=== PATIENT | female | born 1975 | race Caucasian/White ===

== ENCOUNTER 2020-11-05 15:04 | Inpatient (IN) | payer MEDICAID, OTHER ==
[~2020-11-05] VITALS: Ht 160 cm; Wt 63.5 kg
[2020-11-05 17:32] LABS: BASOPHILS % 0.7 % (0.0-2.0); EOSINOPHILS % 0.6 % (0.0-5.0); HEMATOCRIT. 34.4 % (36.0-48.0); HEMOGLOBIN. 11.5 g/dL (12.0-16.0); LYMPHOCYTES % 18.6 % (20.0-50.0); MEAN CORPUSCULAR HEMOGLOBIN 28.1 pg (28.0-32.0); MEAN CORPUSCULAR VOLUME 84.4 fL (81.0-99.0); MEAN PLATELET VOLUME 7.5 fl (7.4-10.4); MONOCYTES % 7.3 % (2.0-8.0); NEUTROPHILS % 72.8 % (40.0-76.0); PLATELET 328 x1000/uL (130-400); RED BLOOD CELL COUNT 4.08 mill/uL (4.2-5.4); RED CELL DISTRIBUTION WIDTH 15.5 % (11.6-14.6)
[2020-11-05 17:34] LABS: CHLORIDE 110 mEq/L (98-107)
[2020-11-05 17:41] LABS: ETHANOL BLOOD < 10 mg/dL
[2020-11-06] MEDS ORDERED: LORAZEPAM 2MG/ML CPJ IM ONE (21:15)
[2020-11-07] MEDS ORDERED: LORAZEPAM 2MG/ML CPJ IV ONE ×2 (11:30→12:00)
[2020-11-07] MEDS ORDERED: SODIUM CHLORIDE 0.9% 1,000 ML IV ONE (11:30)
[2020-11-07 11:47] LABS: BASOPHILS % 0.6 % (0.0-2.0); HEMOGLOBIN. 12.9 g/dL (12.0-16.0); LYMPHOCYTES % 14.5 % (20.0-50.0); MEAN CORPUSCULAR HEMOGLOBIN 27.5 pg (28.0-32.0); MEAN CORPUSCULAR VOLUME 85.8 fL (81.0-99.0); MEAN PLATELET VOLUME 7.6 fl (7.4-10.4); MONOCYTES % 4.6 % (2.0-8.0); NEUTROPHILS % 79.3 % (40.0-76.0); PLATELET 380 x1000/uL (130-400); RED BLOOD CELL COUNT 4.67 mill/uL (4.2-5.4); RED CELL DISTRIBUTION WIDTH 15.8 % (11.6-14.6)
[2020-11-07 12:10] LABS: CHLORIDE 107 mEq/L (98-107)
[2020-11-07 12:14] LABS: ETHANOL BLOOD < 10 mg/dL
[2020-11-07 12:40] LABS: HCG SCREEN NEGATIVE
[2020-11-07] MEDS ORDERED: LORAZEPAM 0.5MG TABLET PO PRN (13:15)
[2020-11-07] MEDS ORDERED: ACETAMINOPHEN 325MG TABLET PO PRN ×2 (13:15)
[2020-11-07] MEDS ORDERED: CLONIDINE 0.1MG TABLET PO PRN (13:15)
[2020-11-07] MEDS ORDERED: DOCUSATE SODIUM 100MG CAPSULE PO PRN (13:15)
[2020-11-07] MEDS ORDERED: ONDANSETRON HCL 4MG/2ML INJ IV PRN (13:15)
[2020-11-07] MEDS ORDERED: IPRATROPIUM/ALBUTEROL 0.5-3(2.5)MG/3ML NEB HHN PRN (13:15)
[2020-11-07] MEDS: SODIUM CHLORIDE 0.9% 1,000 ML IV SCH (13:41)
[2020-11-07 16:00] VITALS: BP 131/67
[2020-11-07 18:00] VITALS: BP 131/67
[2020-11-07 19:44] VITALS: BP 117/59
[2020-11-07 23:43] VITALS: BP 100/58
[2020-11-08] VITALS (7 sets, daily range): BP systolic 95–111; BP diastolic 51–78
[2020-11-08] MEDS: SODIUM CHLORIDE 0.9% 1,000 ML IV SCH (04:45)
[2020-11-08 06:14] LABS: CHLORIDE 109 mEq/L (98-107)
[2020-11-08 06:16] LABS: EOSINOPHILS % 2.7 % (0.0-5.0); HEMATOCRIT. 33.6 % (36.0-48.0); HEMOGLOBIN. 11.1 g/dL (12.0-16.0); LYMPHOCYTES % 23.1 % (20.0-50.0); MEAN CORPUSCULAR HEMOGLOBIN 28.6 pg (28.0-32.0); MEAN CORPUSCULAR VOLUME 86.3 fL (81.0-99.0); MONOCYTES % 7.1 % (2.0-8.0); NEUTROPHILS % 66.1 % (40.0-76.0); PLATELET 271 x1000/uL (130-400); RED BLOOD CELL COUNT 3.89 mill/uL (4.2-5.4); RED CELL DISTRIBUTION WIDTH 15.5 % (11.6-14.6)
[2020-11-08] MEDS ORDERED: POTASSIUM CHLORIDE 20MEQ TABLET SR PO NR (07:30)
== END 2020-11-08 22:18 | DRG 756 ==
LOC: EDBD 15:04 → ER 15:04 → 5WST 11-07 13:01 → EDBEDREQSVC 11-07 13:03 → EDBEDREQ 11-07 13:03 → EDBEDREQTM 11-07 13:03 → ENRESERV 11-07 14:53 → 5WST 11-07 17:48
PROVIDERS: ADMIT Internal Medicine; ATTEND Internal Medicine
DX: F41.1 Generalized anxiety disorder (principal); R45.851 Suicidal ideations; F32.9 Major depressive disorder, single episode, unspecified; F17.200 Nicotine dependence, unspecified, uncomplicated; Z86.32 Personal history of gestational diabetes; Z20.822 Contact with and (suspected) exposure to COVID-19
CPT/HCPCS: 36415; 80048; 80053; 80307; 80320; 80329; 84703; 85025; 93005; 99285; J2060; J7030; G0480